=== PATIENT | female | born 1975 | race Caucasian/White ===

== ENCOUNTER 2020-06-08 12:18 | Emergency (ER) | payer SELFPAY ==
[2020-06-08 12:19] VITALS: BP 124/75; PULSE 104; RESP 16; TEMP 36.6; O2SAT 98; BMI 35.5
--- NOTE | 2020-06-08 12:30 | W.ED.NECK ---
HPI - Neck Pain/Injury General: Chief Complaint: Neck Pain/Injury Stated Complaint: NECK PAIN (X6 DAYS) NOW RADIATING TO L CHEST Time Seen by Provider: 06/08/20 12:21 Source: patient Mode of arrival: ambulatory Limitations: no limitations History of Present Illness: HPI Narrative: Patient is a 44-year-old female who presents to ED today with complaints of pain to the right side of her neck down into the posterior aspect of her shoulder. Patient states she has noticed the pain over the past 4 to 5 days. She has not had any known injury or trauma. 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 She states pain seems to be exacerbated with range of motion of her shoulder and arm. She does report some intermittent paresthesias to her hand. She is not having any midline neck tenderness. She has not noticed any color or temperature changes to her arm. MD complaint: neck pain and other (R shoulder) Onset (ago): day(s) Radiation: right lateral, right shoulder and right upper extremity Severity: moderate Duration: constant Relieving factors: none Exacerbating factors: movement of extremity Associated symptoms: Reports no associated symptoms; Denies nausea Treatments prior to arrival: acetaminophen and ibuprofen Review of Systems Const: Denies: fever(s) Eyes: Denies: change in vision or blurry vision Card: Denies: chest pain, palpitations, irregular heart rhythm, edema, lightheadedness, syncope, pre-syncope, orthopnea or acrocyanosis Resp: Denies: dyspnea GI: Denies: nausea or vomiting Musc: Reports: neck pain, joint pain (R shoulder) and limited range of motion; Denies: back pain, extremity swelling, joint swelling, joint redness, joint stiffness or muscle weakness Neuro: Reports: sensory changes (reports intermittent tingling to hand); Denies: numbness in extremities [facility] ED Female Reproductive History: Date of last menstrual period: 05/12/20 Physical Exam Const: COMMON NORMALS: no acute distress, patient oriented x3, no limitations and alert GENERAL APPEARANCE: cooperative NUTRITIONAL APPEARANCE: obese ORIENTATION/CONSCIOUSNESS: Yes awake, Yes oriented to person, Yes oriented to place and Yes oriented to time HENMT: COMMON NORMALS: normocephalic and atraumatic HEAD & SCALP: normocephalic and atraumatic Neck/C-Spine: COMMON NORMALS: full ROM, no lymphadenopathy and no meningeal signs CERVICAL SPINE: Yes cervical ROM normal, No pain with cervical ROM, No Cervical spine tenderness, Yes Paracervical muscle tenderness right, Yes Paracervical spasm right and Yes Trapezius muscle tenderness right Chest: COMMONS NORMALS: normal inspection of the chest and normal palpation of entire chest wall Resp: COMMON NORMALS: normal respiratory effort and clear to auscultation bilaterally AUSCULTATION: clear to auscultation bilaterally Cardio: COMMON NORMALS: regular rate and regular rhythm RATE: regular rate RHYTHM: regular rhythm Back/Pelvis: BACK IMAGE (FEMALE): 1. TTP overlying trapezius musculature; spasm noted 2. 3. Extremity: COMMON NORMALS: normal to inspection GENERAL: Yes normal exam except as noted OTHER: TTP posterior R shoulder; limited ROM secondary to pain; NV intact Neuro: COMMON NORMALS: patient oriented x3 SENSORIUM/ORIENTATION: Yes alert, Yes oriented to person, Yes oriented to place and Yes oriented to time MENINGEAL SIGNS: Yes no meningeal signs Course Vital Signs: Vital signs: Vital Signs Temperature 97.9 F 06/08/20 12:19 Pulse Rate 104 H 06/08/20 12:19 Respiratory Rate 16 06/08/20 12:19 Blood Pressure 124/75 06/08/20 12:19 Pulse Oximetry 98 06/08/20 12:19 MDM - Neck Pain/Injury MDM Narrative: Medical decision making narrative: Pt point tender directly over trapezius musculature. Will treat with NSAIDS, steroids, and muscle relaxers. She agrees to follow up with PCP for further evaluation if pain persists. Return to ED precautions given. Discharge Plan Discharge Patient Disposition: Home Clinical Impression: Strain of right trapezius muscle Qualifiers: Encounter type: initial encounter Qualified Code(s): S46.811A - Strain of other muscles, fascia and tendons at shoulder and upper arm level, right arm, initial encounter Condition: Stable Prescriptions: New cyclobenzaprine 10 mg tablet 10 mg PO TID Qty: 14 RF: 0 ibuprofen 800 mg tablet 800 mg PO Q8H PRN (Reason: pain) Qty: 20 RF: 0 Medrol (Marcos) 4 mg tablets,dose pack See Rx Instructions .ROUTE .COMPLEX Qty: 21 RF: 0 Discharge Orders: Discharge ED (Routine); Ordered 06/08/20 Ordered By: Brigitte Fernandez Referrals: Charles,Lizz M, DO [Primary Care Provider] - Patient Instructions: Muscle Strain (ED), Musculoskeletal Pain (ED) Coding Level of Care Code ED Brand Ambassador for Michelle Rivas
[2020-06-08] MEDS: ketorolac 60 mg/2 mL INJ IM (13:00)
[2020-06-08] MEDS: dexamethasone 10 mg/mL INJ 8 MG IM (13:18)
== END 2020-06-08 13:20 | disposition home or self-care (01) ==
PROVIDERS: Emergency Provider Physician Assistant; PCP Internal Medicine
DX: S46.811A Strain of other muscles, fascia and tendons at shoulder and upper arm level, right arm, initial encounter (principal); X58.XXXA Exposure to other specified factors, initial encounter
CPT/HCPCS: 96372; 99283; J1100; J1885

== ENCOUNTER 2020-06-17 16:06 | Emergency (ER) | payer SELFPAY ==
[2020-06-17 16:15] VITALS: BP 124/78; PULSE 95; RESP 14; TEMP 37; O2SAT 98; BMI 35.5
--- NOTE | 2020-06-17 16:33 | XRR_ITS ---
PROCEDURE INFORMATION: Exam: XR Right Humerus Exam date and time: 06/17/2020 4:34 PM Age: 45 years old Clinical indication: Pain; Upper arm; Right TECHNIQUE: Imaging protocol: XR Right humerus. Views: 2 or more views. COMPARISON: No relevant prior studies available. FINDINGS: Bones/joints: Normal. Soft tissues: Normal. XR/[place] [id number] IMPRESSION: No acute findings.
--- NOTE | 2020-06-17 16:34 | W.ED.EXTPRO ---
HPI - Extremity Problem General: Chief complaint: Extremity Problem,Nontraumatic Stated complaint: Pain in Rt arm Time Seen by Provider: 06/17/20 16:27 History of Present Illness: HPI Narrative: Patient complained about pain to her right humerus area tricep bicep area been going on for about a week. She was treated here a week ago and said the trapezius pain is improved but the bicep is continue to hurt makes it very difficult for her to sleep. 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 She would like to have an x-ray of the humerus because she said the bone hurts. Complaint: extremity pain Onset (ago): week(s) Pain Consistency: constant Location: right and upper extremity Severity scale (1-10): 5 Quality: burning and aching Relieving factors: immobilization Exacerbating factors: range of motion Associated symptoms: Reports no associated symptoms; Deny chest pain, fever(s) or rash Review of Systems Const: Denies: fever(s), chills or body aches Eyes: Denies: change in vision or blurry vision ENMT: Denies: throat pain or nasal congestion Card: Denies: chest pain or dyspnea on exertion Resp: Denies: dyspnea, productive cough or non-productive cough GI: Denies: abdominal pain, nausea or vomiting Musc: Reports: extremity pain (Right humerus) Skin/Breast: Reports: other (Small bruise right tricep distal aspect); Denies: rash Neuro: Denies: headache(s) Psych: Denies: anxiety or depression Dilip/Lymph: Denies: easy bruising [facility] ED Female Reproductive History: Date of last menstrual period: 05/12/20 Physical Exam Const: COMMON NORMALS: no acute distress, average body habitus and patient oriented x3 HENMT: COMMON NORMALS: normocephalic HEAD & SCALP: normal to inspection and normocephalic FACE & SINUS: normal facial exam Eye: COMMON NORMALS: conjunctivae normal GENERAL EYE: appearance normal, both eyes and all related structures CONJUNCTIVA: Yes conjunctivae normal Neck/C-Spine: COMMON NORMALS: no JVD Chest: COMMONS NORMALS: normal inspection of the chest Resp: COMMON NORMALS: normal respiratory effort and clear to auscultation bilaterally AUSCULTATION: clear to auscultation bilaterally Cardio: COMMON NORMALS: no JVD, regular rate and regular rhythm RATE: regular rate RHYTHM: regular rhythm GI: COMMON NORMALS: Normal to inspection, nondistended, normoactive bowel sounds present Back/Pelvis: OTHER: Trapezius area it is slightly tender she said feels better now than previously and this is on the right side Extremity: COMMON NORMALS: normal to inspection and full ROM RIGHT UPPER EXTREMITY: Yes upper arm (Pain palpation right humeral resistive arm movements are tender) Right upper arm: Yes neurovascular exam (Intact) OTHER: Patient complains about pain in tricep and bicep area with different range of motion muscular test. Hurts with resistance either going superiorly or inferiorly. Tender to palpation on the tricep area no swelling noted distal neurovascular intact no obvious muscle tear no erythema or evidence of clot Neuro: COMMON NORMALS: patient oriented x3 Course Vital Signs: Vital signs: Vital Signs Temperature 98.6 F 06/17/20 16:15 Pulse Rate 95 06/17/20 16:15 Respiratory Rate 14 06/17/20 16:15 Blood Pressure 124/78 06/17/20 16:15 Pulse Oximetry 98 06/17/20 16:15 Discharge Plan Discharge Condition: Good Prescriptions: No Action cyclobenzaprine 10 mg tablet 10 mg PO TID Qty: 14 RF: 0 ibuprofen 800 mg tablet 800 mg PO Q8H PRN (Reason: pain) Qty: 20 RF: 0 Medrol (Marcos) 4 mg tablets,dose pack See Rx Instructions .ROUTE .COMPLEX Qty: 21 RF: 0 Coding Level of Care Code ED Technical Research Scientist for Michelle Rivas
== END 2020-06-17 17:27 | disposition home or self-care (01) ==
PROVIDERS: Emergency Provider Nurse Practitioner Family; PCP Internal Medicine
DX: M79.601 Pain in right arm (principal)
CPT/HCPCS: 73060; 99282

== ENCOUNTER 2020-08-07 16:40 | Outpatient (CLI) | payer SELFPAY ==
--- NOTE | 2020-08-07 16:50 | XRR_ITS ---
PROCEDURE INFORMATION: Exam: XR Right Shoulder Exam date and time: 08/07/2020 4:50 PM Age: 45 years old Clinical indication: Pain; Shoulder; Right; Additional info: RT shoulder pain x 8 weeks TECHNIQUE: Imaging protocol: XR Right shoulder. Views: 2 or more views. COMPARISON: No relevant prior studies available. FINDINGS: Bones/joints: Normal. Soft tissues: Normal. XR/XR shoulder RT min 2V* [id number] IMPRESSION: No acute findings.
== END 2020-08-07 16:41 | disposition home or self-care (01) ==
PROVIDERS: PCP Internal Medicine; Visit Provider Internal Medicine
DX: M25.511 Pain in right shoulder (principal)
CPT/HCPCS: 73030

== ENCOUNTER → 2022-11-13 10:37 | Outpatient (BNVA) | payer BC, SELFPAY | PROVIDERS: PCP Internal Medicine; Visit Provider Family Medicine Adult Medicine | DX: M06.9 Rheumatoid arthritis, unspecified (principal); M25.561 Pain in right knee; M25.461 Effusion, right knee; Q76.1 Klippel-Feil syndrome; F32.A Depression, unspecified | CPT/HCPCS: 80053; 84443; 85025; 85651; 86140; 86160; 86162; 86200; 86235; 86255; 86376; 86431 ==

== ENCOUNTER → 2022-12-19 09:58 | Outpatient (BNVA) | payer BC, SELFPAY | PROVIDERS: PCP Internal Medicine; Referring Provider Family Medicine Adult Medicine; Visit Provider Physician Assistant | DX: M25.561 Pain in right knee (principal); M25.562 Pain in left knee; M25.461 Effusion, right knee | CPT/HCPCS: 73560 ==

== ENCOUNTER 2022-12-19 13:45 | Outpatient (CLI) | payer BC, MEDICAID, SELFPAY | END 2022-12-19 13:46 | disposition home or self-care (01) | LOC: SPT 13:45 | PROVIDERS: PCP Internal Medicine; Visit Provider Physician Assistant | DX: Z46.89 Encounter for fitting and adjustment of other specified devices (principal); M25.561 Pain in right knee; M25.461 Effusion, right knee | CPT/HCPCS: 97760; L1812 ==

== ENCOUNTER → 2023-01-09 14:17 | Outpatient (BNVA) | payer BC, MEDICAID, SELFPAY | PROVIDERS: PCP Internal Medicine; Visit Provider Orthopaedic Surgery | DX: Z98.1 Arthrodesis status (principal); M54.2 Cervicalgia | CPT/HCPCS: 72050 ==

== ENCOUNTER 2023-02-11 15:05 | Outpatient (CLI) | payer BC, SELFPAY ==
--- NOTE | 2023-02-11 15:15 | MR_ITS ---
WS: [id number] MRI CERVICAL SPINE NONCONTRAST HISTORY: Chronic neck and low back pain. COMPARISON: Cervical radiograph 01/09/2023 Technique: Multiplanar, multisequence noncontrast imaging of the cervical spine. Prior anterior cervical fusion at C6-7 with interbody spacer. No complications are evident. Straighte yue of the normal cervical lordosis. Disc spaces are mildly narrowed throughout the cervical spine with osteophytic ridging involving the vertebral bodies. Craniocervical junction, C1 and C2 relationship, odontoid process and soft tissues are normal. C2-C3: Diffuse osteophytic ridging with mild bilateral foraminal narrowing. C3-C4: Very mild osteophytic ridging and foraminal narrowing. C4-C5: Mild annular disc bulging with bilateral disc osteophytes in the foramina. Mild central and bi lateral foraminal narrowing. C5-C6: Diffuse annular disc bulging with osteophytic ridging. Shallow proximal LEFT foraminal disc pr otrusion. Mild central with moderate bilateral foraminal stenosis. C6-C7: Limited visualization of the foramina due to artifact. No high-grade central stenosis. At leas t mild foraminal stenosis. C7-T1: Mild foraminal narrowing. Paraspinal soft tissue are normal. IMPRESSION: 1. Status post anterior cervical fusion with interbody spacer at C6-7, no complications. 2. Diffuse osteophytic ridging involving the cervical vertebral bodies with mild foraminal and centra l stenosis encroachment. 3. C2-3, C3-4 and C7-T1, mild foraminal narrowing. 4. C4-5: Mild central and bilateral foraminal narrowing. 5. C5-6: Mild central and moderate bilateral foraminal stenosis. There is a more focal LEFT foraminal disc protrusion. 6. C6-7: Limited evaluation due to artifact from the hardware but there is at least mild foraminal st enosis.
--- NOTE | 2023-02-11 16:00 | MR_ITS ---
WS: [id number] MRI LUMBAR SPINE NONCONTRAST HISTORY: lumbar pain COMPARISON: CT 12/12/2016 TECHNIQUE: Sagittal and axial multisequence imaging is submitted. Posterior lumbar alignment is normal. Remote L1 compression fracture without progression since the CT of 12/12/2016. No acute fracture. No marrow edema. Disc spaces are mildly narrowed throughout the lumbar spine. Conus terminates normally at L1-2 disc level. L1-L2: Normal. L2-L3: Mild annular disc bulging with moderate ligamentum flavum and facet arthritis. Disc encroaches upon the subarticular recesses and the traversing L3 nerve roots. L3-L4: Mild annular disc bulging with a moderate to large central disc protrusion deforms the ventral thecal sac and extending into the subarticular recesses. Moderate bilateral ligamentum flavum and fa cet arthritis. Moderate encroachment upon the traversing L4 nerve roots. Moderate central, bilateral subarticular recess and mild foraminal stenosis. L4-L5: Diffuse annular disc bulging with a broad-based central disc protrusion and annular fissure. D isc encroaches into the subarticular recesses and deforms the ventral thecal sac. Disc contacts and s lightly displaces the traversing L5 nerve roots. Mild central, bilateral subarticular recess and fora tanja stenosis. L5-S1: Mild annular disc bulging. The disc does contact the S1 nerve roots bilaterally with slight di splacement. Mild subarticular recess with moderate bilateral foraminal stenosis. Paravertebral soft tissues are negative. IMPRESSION: 1. Stable remote L1 compression fracture without retropulsion. 2. L3-4: Moderate to large central disc protrusion encroaching into the subarticular recesses and con tacting the traversing L4 nerve roots moderate central, bilateral subarticular recess and mild forami nal stenosis. 3. L4-5: Broad-based central disc protrusion encroaching into the subarticular recess. Mild central, bilateral subarticular recess and foraminal stenosis. 4. L5-S1: Disc bulging contacts the S1 nerve roots. Mild subarticular recess with moderate bilateral foraminal stenosis. 5. L2-3: Minimal disc encroachment upon the subarticular recesses and traversing L3 nerve roots.
== END 2023-02-11 15:06 | disposition home or self-care (01) ==
LOC: RAD 15:06
PROVIDERS: PCP Internal Medicine; Visit Provider Orthopaedic Surgery
DX: Q76.1 Klippel-Feil syndrome (principal); M54.50 Low back pain, unspecified; M51.26 Other intervertebral disc displacement, lumbar region; M48.061 Spinal stenosis, lumbar region without neurogenic claudication; Z98.1 Arthrodesis status; M25.78 Osteophyte, vertebrae; M48.02 Spinal stenosis, cervical region; M50.222 Other cervical disc displacement at C5-C6 level
CPT/HCPCS: 72141; 72148

== ENCOUNTER → 2023-06-05 09:15 | Outpatient (BNVA) | payer BC, MEDICAID, SELFPAY | PROVIDERS: PCP Family Medicine Adult Medicine; Visit Provider Physician Assistant | DX: M25.561 Pain in right knee (principal); M25.461 Effusion, right knee; M25.571 Pain in right ankle and joints of right foot; M06.9 Rheumatoid arthritis, unspecified; M25.469 Effusion, unspecified knee; M06.4 Inflammatory polyarthropathy | CPT/HCPCS: 36415; 73560; 73565; 73610; 80053; 84550; 85025; 85651; 86140; 86200; 86225; 86235; 86431 ==

== ENCOUNTER 2023-07-12 06:41 | Emergency (ER) | payer BC, MEDICAID, SELFPAY ==
--- NOTE | 2023-07-12 06:42 | W.ED.ANIMALB ---
HPI - Animal Bite General: Chief Complaint: Animal Bite Stated Complaint: DOG BITE Time Seen by Provider: 07/12/23 06:42 Source: patient Mode of arrival: EMS History of Present Illness: 48-year-old female presents emergency room after being bitten by one of her pets at home she has several puncture wounds to her right hand and a gaping wound of approximately 5 cm overlying the distal radius. There is a small amount of oozing from it. Patient is unsure of her tetanus status she states the dog has had rabies vaccinations and is up-to-date. No other injuries MD complaint: animal bite Animal: dog Description of animal: household pet Mechanism: bite Location - Extremities: Left: hand Associated symptoms: Deny bleeding, numbness or wound drainage Treatments prior to arrival: wound dressing(s) Related Data: Patient tetanus UTD: No [facility] ED PFSH: Medical History (Updated 07/12/23 @ 07:05 by Tapan Akhtar DO) COPD (chronic obstructive pulmonary disease) Cervical vertebral fusion syndrome Anxiety Depression Rheumatoid arthritis Compression fracture Ectopic Nicotine use disorder Psychiatric care Surgical History History of cholecystectomy H/O spinal fusion Family History Father No problems noted. Mother Paranoia Hallucination Diabetes Cancer Stroke Social History Smoking and tobacco/nicotine status: current every day tobacco/nicotine user cigarettes Packs smoked per day: 0.5 Years cigarettes smoked: 24 Quit status (tobacco/nicotine): has tried quititng Number of times tried to quit tobacco: 2 Second hand smoke exposure: Yes Alcohol intake: former Substance/Drug Use: current Other substance/drug use details: CDB products. Physical Exam Extremity: OTHER: Examination of the right hand there are several puncture wounds on the hand 1 at the center of the base of the palm there is no active gaping. There is a gaping wound of approximately 5 cm overlying the distal radius laterally. Subcutaneous tissue is exposed. Small amount of bleeding. Procedures Laceration Laceration 1: Site: upper extremity Side (If applicable): right Size (cm): 5 Description: linear Depth: simple, single layer Local Anesthetic: lidocaine 1% and with epi Amount of anesthesia used (mL): 3 Pre-repair: wound explored Skin layer closed with: nylon Size (cm): 4-0 Number of sutures: 3 Technique: simple, interrupted Course Vital Signs: Vital signs: Vital Signs Temperature 98.4 F 07/12/23 06:44 Pulse Rate 99 07/12/23 06:52 Respiratory Rate 18 07/12/23 06:44 Blood Pressure 137/74 07/12/23 06:52 Pulse Oximetry 96 07/12/23 06:52 Oxygen Delivery Me thod Room Air 07/12/23 06:44 MDM - Animal Bite Medical Decision Making Because the wound was gaping fairly significantly sutures were applied. 3 loose sutures applied to close the gaping but did not completely close the wound. Still allows for drainage. Discussed with the patient that normally we do not close animal bites however because this was gaping it is loosely approximated. She should watch closely for signs of infection if there is any drainage or induration or erythema she should return to the emergency room to be reevaluated or see your primary care doctor. Sutures should be removed in 7 to 10 days wound care instructions given can also apply topical antibiotic ointment. X-ray does not show any retained foreign bodies or acute fractures there is an old nonunited ulnar styloid fracture. Differential Diagnosis Likely dog bite XR interpretation done by ED provider, pending radiology final review Discharge Plan Discharge Patient Disposition: Home Clinical Impression: Dog bite Prescriptions: New amoxicillin-pot clavulanate 875-125 mg tablet 1 tab PO BID Qty: 14 0RF No Action albuterol sulfate 90 mcg/actuation HFA aerosol inhaler 2 puff inhalation Q6H PRN (Reason: shortness of breath or wheezing) Qty: 8.5 0RF (DME) knee brace right See Rx Instructions .Route .MEDSUPPLY Qty: 1 0RF Rx Instructions: As directed acetaminophen [Tylenol] 325 mg capsule 975 mg PO DAILY PRN (Reason: fever or pain) duloxetine [Cymbalta] 60 mg capsule,delayed release(DR/EC) 120 mg PO DAILY Qty: 60 1RF cyproheptadine 4 mg tablet 4 mg PO .HS Qty: 30 1RF (DME) RIGHT ANKLE BRACE See Rx Instructions .Route .MEDSUPPLY Qty: 1 0RF Rx Instructions: As directed baclofen 10 mg tablet 10 mg PO BID PRN (Reason: spasm) Qty: 60 0RF ibuprofen 800 mg tablet 800 mg PO Q8H PRN (Reason: pain) Qty: 90 1RF hydroxyzine HCl 10 mg tablet 10 mg PO TID PRN (Reason: sleep) Qty: 90 1RF Discharge Orders: Discharge ED (Routine); Ordered 07/12/23 Ordered By: Tapan Akhtar Referrals: Charles Conrad MD [Primary Care Provider] - Discharge Diet: Usual diet Discharge Activity: Increase activity as tolerated Patient Instructions: Opioid Safety, Pain Management Activity Restrictions/Additional Instructions: Thank you for choosing [facility] for your healthcare needs today. Please realize this is an emergency room and that we are providing you with a medical screening exam and this may not be complete and all inclusive of all the testing and or work up that you may need to determine your ailment or severity of your illness. It is very important that you follow up as instructed or that you return to the Emergency Department should you have concerns or if your condition changes or worsens in any way. You were seen today after a dog bite. Animal bites have a increased potential for developing infection. Especially the puncture wounds. The wound over the wrist was sutured loosely to allow for drainage should any infection develop. Watch this wound closely if there is any redness or drainage return to be reevaluated. You will be started on oral antibiotics 1 pill twice a day begin these today. X-rays done in the emergency room shoulder and old ulnar styloid fracture but no acute fractures or retained foreign bodies. Your tetanus was also updated today. Use Tylenol or ibuprofen for the pain. You can ice if needed for comfort. Recommend keeping the right hand elevated when you are able. We did not initiate rabies since she reported to us that the dog has had the rabies vaccine. Coding Level of Care Code ED Pipe Layer Helper for Michelle Rivas
[2023-07-12 06:44] VITALS: BP 137/74; PULSE 97; RESP 18; TEMP 36.9; O2SAT 95
--- NOTE | 2023-07-12 06:48 | XRR_ITS ---
PROCEDURE INFORMATION: Exam: XR Right Hand Exam date and time: 07/12/2023 6:51 AM Age: 48 years old Clinical indication: Injury or trauma; Other: Dog bite; Puncture; Hand; Right TECHNIQUE: Imaging protocol: Radiologic exam of the right hand. Views: 3 or more views. COMPARISON: No relevant prior studies available. FINDINGS: Bones/joints: Normal. No osseous injury. No radiopaque foreign material. Soft tissues: Normal. XR/XR hand RT min 3V* [id number] IMPRESSION: No acute findings.
[2023-07-12 06:52] VITALS: BP 137/74; PULSE 99; O2SAT 96
[2023-07-12] MEDS: acetaminophen 500 mg Tablet 1000 MG PO (07:13)
[2023-07-12] MEDS: tetanus-dipt-pertussis 0.5 mL SDV IM (07:19)
[2023-07-12 07:27] VITALS: BP 137/74; PULSE 99; O2SAT 96
== END 2023-07-12 07:28 | disposition home or self-care (01) ==
PROVIDERS: Emergency Provider Family Medicine; PCP Family Medicine Adult Medicine
DX: S61.451A Open bite of right hand, initial encounter (principal); W54.0XXA Bitten by dog, initial encounter; F17.210 Nicotine dependence, cigarettes, uncomplicated; J44.9 Chronic obstructive pulmonary disease, unspecified; Z23 Encounter for immunization
CPT/HCPCS: 12002; 73130; 90715; 99283

== ENCOUNTER 2023-07-30 16:14 | Outpatient (CLI) | payer BC, MEDICAID, SELFPAY ==
--- NOTE | 2023-07-30 16:18 | MR_ITS ---
WS: [id number] MRI RIGHT KNEE NONCONTRAST TECHNIQUE: Axial PD, coronal PD fat sat, coronal PD, sagittal PD, and sagittal PD fat-sat images obta ined. CLINICAL INFORMATION: KNEE PAIN COMPARISON: None. FINDINGS: Distal quadriceps and patella tendons are intact. Hypertrophic patella. Moderate suprapatellar effusi on. Moderate chondromalacia patella. Normal medial and lateral patellar retinaculum. Normal ACL and P CL. Normal medial and lateral collateral ligaments. Normal popliteus. Moderate tricompartment arthrit is with grade III chondromalacia. Chronic thinning of the medial and lateral meniscus. No acute appea ring meniscal tears. Fibula head is normal in appearance. MR/MR knee RT wo con* [id number] IMPRESSION: 1. Normal ACL and PCL. 2. 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 Moderate c hondromalacia patella. 3. Moderate suprapatellar effusion. 4. Chronic thinning of the medial and lateral meniscus. No acute meniscal tear s. 5. Medial and lateral collateral ligaments appear intact. Outbridge grading: grade III: partial-thickness cartilage loss with focal ulcer ation
== END 2023-07-30 16:15 | disposition home or self-care (01) ==
LOC: RAD 16:14
PROVIDERS: PCP Family Medicine Adult Medicine; Visit Provider Physician Assistant
DX: M25.561 Pain in right knee (principal); M25.461 Effusion, right knee; M17.11 Unilateral primary osteoarthritis, right knee
CPT/HCPCS: 73721

== ENCOUNTER → 2023-08-12 10:30 | Outpatient (BNVA) | payer BC, MEDICAID, SELFPAY | PROVIDERS: PCP Family Medicine Adult Medicine; Visit Provider Physician Assistant | DX: M17.11 Unilateral primary osteoarthritis, right knee; M25.461 Effusion, right knee; S93.401A Sprain of unspecified ligament of right ankle, initial encounter; X58.XXXA Exposure to other specified factors, initial encounter | CPT/HCPCS: 73610 ==

== ENCOUNTER → 2023-11-25 08:02 | Outpatient (BNVA) | payer MEDICAID, SELFPAY | PROVIDERS: PCP Family Medicine Adult Medicine; Visit Provider Specialist | DX: Z53.09 Procedure and treatment not carried out because of other contraindication (principal) | CPT/HCPCS: 95885; 95907 ==

== ENCOUNTER → 2023-12-04 14:39 | Outpatient (BNVA) | payer MEDICAID, SELFPAY | PROVIDERS: PCP Family Medicine Adult Medicine; Visit Provider Orthopaedic Surgery | DX: Z09 Encounter for follow-up examination after completed treatment for conditions other than malignant neoplasm (principal) | CPT/HCPCS: 99214 ==

== ENCOUNTER 2023-12-17 13:25 | Outpatient (CLI) | payer MEDICAID, SELFPAY ==
--- NOTE | 2023-12-17 13:45 | MRR_ITS ---
PROCEDURE INFORMATION: Exam: MR Right Lower Extremity Joint Without Contrast; Ankle Exam date and time: 12/17/2023 2:44 PM Age: 48 years old Clinical indication: Ankle; Right; Patient HX: Pain and swelling of the lateral side around the malleus; Additional info: Evaluated atfl and PT tendon TECHNIQUE: Imaging protocol: Magnetic resonance imaging of the right lower extremity without contrast. Exam focused on the ankle. COMPARISON: CR XR ankle RT min 3V* [id number] 08/12/2023 11:01 AM FINDINGS: Bones/joints: Small ankle effusion. The bones are intact and of normal signal. No fracture. LIGAMENTS: Distal tibiofibular syndesmosis: Unremarkable. No tear. Anterior talofibular ligament: Unremarkable. No tear. Posterior talofibular ligament: Unremarkable. No tear. Calcaneofibular ligament: Unremarkable. No tear. Deltoid ligament complex: Unremarkable. No tear. TENDONS: Flexor tendons of foot: Small amount of fluid in the flexor digitorum longus tendon sheath. The tendon appears intact. Tibialis posterior tendon: Small amount of fluid in the posterior tibialis tendon sheath. The tendon appears intact. Peroneal tendons: Unremarkable as visualized. Extensor tendons of foot: Unremarkable as visualized. Tibialis anterior tendon: Small amount of fluid in the distal sheath. The tendon appears intact. Achilles tendon: Mild soft tissue edema deep to the Achilles tendon. The Achilles tendon appears intact. Tarsal canal (Sinus tarsi): Unremarkable. Normal signal of the fat. Tarsal tunnel: Unremarkable. Soft tissues: Mild edema in the peroneus longus musculotendinous junction with a small amount of fluid in the tendon sheath. The tendon appears intact. Mild edema in the peroneus brevis musculotendinous junction with a small amount of fluid in the tendon sheath. The tendon appears intact. Plantar fascia: Plantar fascia is unremarkable. MR/MR ankle RT wo con* [id number] IMPRESSION: 1. Small amount of fluid in the tibialis posterior,, tibialis anterior, flexor digitorum longus, peroneus longus, and peroneus brevis tendon sheaths. This could indicate mild tenosynovitis. The tendons appear intact with no tendinopathy visualized. 2. Small ankle effusion.
== END 2023-12-17 13:26 | disposition home or self-care (01) ==
LOC: RAD 13:25
PROVIDERS: PCP Family Medicine Adult Medicine; Visit Provider Podiatrist Foot & Ankle Surgery
DX: M25.471 Effusion, right ankle (principal); M25.371 Other instability, right ankle; S99.911A Unspecified injury of right ankle, initial encounter; M25.571 Pain in right ankle and joints of right foot; S93.491A Sprain of other ligament of right ankle, initial encounter
CPT/HCPCS: 73721

== ENCOUNTER 2024-03-10 10:19 | Outpatient (RCR) | payer MEDICAID, SELFPAY | END 2024-03-30 23:59 | disposition home or self-care (01) | LOC: SPT 10:19 | PROVIDERS: Visit Provider Orthopaedic Surgery | DX: M54.2 Cervicalgia (principal); G89.29 Other chronic pain | CPT/HCPCS: 97110 ==

== ENCOUNTER 2024-03-31 06:00 | Outpatient (RCR) | payer MEDICAID, SELFPAY | END 2024-04-30 23:59 | disposition home or self-care (01) | LOC: SPT 06:00 | PROVIDERS: Visit Provider Orthopaedic Surgery | DX: M54.2 Cervicalgia (principal); G89.29 Other chronic pain | CPT/HCPCS: 97110 ==

== ENCOUNTER 2024-05-01 06:00 | Outpatient (RCR) | payer MEDICAID, SELFPAY | END 2024-05-28 23:59 | disposition home or self-care (01) | LOC: SPT 06:00 | PROVIDERS: Visit Provider Orthopaedic Surgery | DX: M54.2 Cervicalgia (principal); G89.29 Other chronic pain | CPT/HCPCS: 97110 ==

== ENCOUNTER 2024-05-29 06:00 | Outpatient (RCR) | payer MEDICAID, SELFPAY | END 2024-06-28 23:59 | disposition home or self-care (01) | LOC: SPT 06:00 | PROVIDERS: Visit Provider Orthopaedic Surgery | DX: M54.2 Cervicalgia (principal); G89.29 Other chronic pain | CPT/HCPCS: 97110; 97150 ==

== ENCOUNTER 2024-08-19 00:23 | Emergency (ER) | payer MEDICAID, SELFPAY ==
[2024-08-19 00:26] VITALS: BP 131/79; PULSE 101; RESP 18; TEMP 36.7; O2SAT 95; BMI 35.9
[2024-08-19 02:19] LABS: Basophils # 0.1 10^3/uL (0.0-0.1); Basophils % 0.7 %; Eosinophils # 0.5 10^3/uL (0.0-0.8); Eosinophils % 5.1 %; Lymphocytes # 2.5 10^3/uL (0.8-4.8); Lymphocytes % 28.7 %; Mean Corpuscular HGB Conc 33.5 g/dL (30-55); Mean Corpuscular Hemoglobin 31.1 pg (27-33); Mean Corpuscular Volume 92.8 fl (85-98); Monocytes # 0.6 10^3/uL (0.2-0.9); Monocytes % 6.4 %; Neutrophils # 5.19 10^3/uL (1.8-7.7); Neutrophils % 58.9 %; Nucleated Red Blood Cells % 0 %; Platelet Count 223 10^3/cmm (157-399); Red Blood Count 5.28 10^6/uL (3.85-5.65); Red Cell Distribution Width 13.2 % (12.1-15.1); White Blood Count 8.81 10^3/uL (3.29-11.43)
[2024-08-19 02:22] LABS: Bilirubin Urine Negative (Negative); Blood Urine Negative (Negative); Glucose Urine UA Negative (Normal); Ketones Urine Negative (Negative); Leukocyte Esterase Urine Negative (Negative); Nitrate Urine Negative (Negative); Protein Urine Negative (Negative); Specific Gravity, Urine 1.022 (1.005-1.030); Urine Appearance Clear (CLEAR); Urine Color Yellow (Yellow)
[2024-08-19 02:27] LABS: Add Urine Microscopic? YES; Bacteria Urine None Seen /hpf; RBC Urine 0-2 /hpf (0-2); Squamous Epithelial Cell Urine 0-5 /hpf (0-5); WBC Urine 0-5 /hpf (0-5)
[2024-08-19 02:34] LABS: Alanine Aminotransferase 16 U/L (0-33); Alkaline Phosphatase 80 U/L (35-105); Aspartate Amino Transferase 14 U/L (0-32); Blood Urea Nitrogen 14 mg/dL (6-20); Carbon Dioxide 29 mmol/L (22-29); Chloride 99 mmol/L (98-107); Creatinine Clr Calc Pharmacy 134.6549; Globulin 3.5 g/dL (1.3-4.6); Glomerular Filtration Rate 105.8 mL/min (90-130); Glucose 96 mg/dL (65-115); Lipase 18 U/L (13-60); Magnesium 1.9 mg/dL (1.7-2.3); Osmolality Calculated 286 mOsm/kg (285-295); Sodium 138 mmol/L (136-145); Total Bilirubin 0.3 mg/dL (0.15-1.2); Total Protein 7.5 g/dL (6.6-8.7)
[2024-08-19 02:35] LABS: Lactic Sepsis W/Reflex 1.2 mmol/L (0.5-2.2)
[2024-08-19] MEDS: sodium chloride 0.9% 1,000 ML 999 ML IV (02:39)
--- NOTE | 2024-08-19 04:21 | ED_ITS ---
HPI - Abdominal Pain 2 General: Chief Complaint: Abdominal Pain Stated Complaint: epigastric abd pain/ n/v/d Time Seen by Provider: 08/19/24 02:14 History of Present Illness: Ceci Ruiz presents to the emergency department with abdominal pain and vomiting. The patient reports experiencing pain in her gut, particularly after eating. She states that she did not eat for 2 days and did not have pain during that time. However, when she ate again on Friday (the day before the visit), she experienced pain and vomiting. The patient describes the pain as located right up in the middle of her abdomen. She mentions that drinking water and chicken broth is tolerable, but attempting to drink Propel (an electrolyte beverage) exacerbated her symptoms. The patient has not experienced any constipation or diarrhea. She denies having fever or chills. The patient expresses concern about her pancreas, but states she does not have her gallbladder. She reports no blood in her vomit or stool. The patient mentions that she tried eating bland fish (Swahili or [place] T[place]) in small amounts, but was unable to keep it down, describing the experience as ridiculous. Related Data Home Medications ?Medication ?Instructions ?Recorded ?Confirmed acetaminophen 325 mg capsule 975 mg PO DAILY PRN fever or pain 11/07/21 07/29/24 (Tylenol) B-complex with vitamin C 1 tab PO DAILY 04/29/2404/24 ashwagandha root extract 300 mg mg PO 04/29/24 5 capsule berberine chloride 500 mg capsule mg PO 04/29/2407/29 calcium 300 mg-D3 25 mcg-magnesium tab PO 04/29/2404/24 66 mg-K2 37.5 mcg-herbal tablet (Alive Calcium-Vitamin D3-K2) Previous Rx's ?Medication ?Instructions ?Recorded albuterol sulfate 90 mcg/actuation 2 puff inhalation Q 6H PRN 12/03/22 aerosol inhaler shortness of breath or wheez ing #8.5 grams knee brace right #1 ea 12/19/22 RIGHT ANKLE BRACE #1 ea 06/05/23 ibuprofen 800 mg tablet 800 mg PO Q8H PRN pain #90 t abs 06/06/23 diclofenac sodium 1 % topical gel 4 g topical QID #100 grams 08/12/23 (Voltaren Arthritis Pain) triamcinolone acetonide 0.1 % 1 applic topical BID #30 grams 10/08/23 topical cream prednisone 20 mg tablet 20 mg PO DAILY 7 days #15 ta bs 04/29/24 omeprazole 40 mg capsule,delayed 40 mg PO DAILY 8 week s #60 caps 08/19/24 release Allergies Allergy/AdvReac Type Severity Reaction Status Date / Time No Known Allergies Allergy Verified 08/19/24 00:32 Review of Systems 2 General: Reports: 10 or more systems reviewed and unremarkable except in HPI and below PFSH ED 2 PFSH: Medical History COPD (chronic obstructive pulmonary disease) Cervical vertebral fusion syndrome Anxiety Depression Rheumatoid arthritis Compression fracture Ectopic Nicotine use disorder Surgical History History of cholecystectomy H/O spinal fusion Family History Father No problems noted. Mother Paranoia Hallucination Diabetes Cancer Stroke Social History Smoking and tobacco/nicotine status: current every day tobacco/nicotine user cigarettes Packs smoked per day: 0.5 Years cigarettes smoked: 24 Quit status (tobacco/nicotine): has tried quititng Number of times tried to quit tobacco: 2 Second hand smoke exposure: Yes Alcohol intake: former Substance/Drug Use: current Other substance/drug use details: CDB products. Physical Exam 2 Const: COMMON NORMALS: no acute distress, patient oriented x3, healthy appearing, alert and well nourished HENMT: COMMON NORMALS: normocephalic HEAD & SCALP: normocephalic Eye: COMMON NORMALS: EOMs intact bilaterally Neck/C-Spine: COMMON NORMALS: full ROM and supple Resp: COMMON NORMALS: normal respiratory effort, No retractions and clear to auscultation bilaterally AUSCULTATION: clear to auscultation bilaterally Cardio: COMMON NORMALS: regular rate, regular rhythm, No gallops present (Cardio) and No murmurs present (Cardio) RATE: regular rate RHYTHM: r egular rhythm GI: COMMON NORMALS: Soft to palpation and non-tender PALPATION: Yes Soft to palpation Extremity: GENERAL: Yes normal exam except as noted Neuro: COMMON NORMALS: patient oriented x3 SENSORIUM/ORIENTATION: Yes alert Skin: COMMON NORMALS: no rashes or lesions noted GENERAL SKIN EXAM: no rashes or lesions noted Course 2 Vital Signs: Vital signs: Vital Signs Temperature 98.1 F 08/19/24 00:26 Pulse Rate 83 08/19/24 04:56 Respiratory Rate 18 08/19/24 00:26 Blood Pressure 125/86 08/19/24 04:56 Pulse Oximetry 97 08/19/24 04:56 MDM - Abdominal Pain Medical Decision Making Patient reports abdominal pain, nausea, and vomiting for several days. Pain is localized to the epigastric region. She has been unable to tolerate food for 2 days, with recurrence of symptoms upon reintroduction of food. No fever, chills, diarrhea, or constipation reported. Patient's gallbladder has been removed. Labs, including pancreatic enzymes, were reported as normal. Given the location of pain and exacerbation with food intake, acid reflux is suspected. Additionally, there is consideration of a possible viral gastroenteritis, as there is a reported outbreak in the local area with similar presentations lasting up to 7 days. - Start omeprazole 40 mg PO daily, 30 minutes before first meal of the day - Administer first dose of omeprazole before discharge - Educate patient on dietary modifications: - Avoid sugary, acidic, and spicy foods - Maintain hydration with water and chicken broth Encouraged the patient to go to primary care physician for follow-up. Return precautions were discussed and the patient was discharged home in stable condition. Lab Data 08/19/24 02:01 08/19/24 02:01 Labs/Radiology: Laboratory Results WBC 8.81 10^3/uL (3.29-11.43) 08/19/24 02:01 RBC 5.28 10^6/uL (3.85-5.65) 08/19/24 02:01 Hgb 16.40 g/dL (11.27-16.99) 08/19/24 02:01 Hct 49.0 % (36-47) H 08/19/24 02:01 MCV 92.8 fl (85-98) 08/19/24 02:01 MCH 31.1 pg (27-33) 08/19/24 02:01 MCHC 33.5 g/dL (30-55) 08/19/24 02:01 RDW 13.2 % (12.1-15.1) 08/19/24 02:01 Plt Count 223 10^3/cmm (157-399) 08/19/24 02:01 MPV 12.0 fL (7.4-10.4) H 08/19/24 02:01 Neut % (Auto) 58.9 % 08/19/24 02:01 Lymph % (Auto) 28.7 % 08/19/24 02:01 [place] % (Auto) 6.4 % 08/19/24 02:01 Eos % (Auto) 5.1 % 08/19/24 02:01 Baso % (Auto) 0.7 % 08/19/24 02:01 Neut # (Auto) 5.19 10^3/uL (1.8-7.7) 08/19/24 02:01 Lymph # (Auto) 2.5 10^3/uL (0.8-4.8) 08/19/24 02:01 [place] # (Auto) 0.6 10^3/uL (0.2-0.9) 08/19/24 02:01 Eos # (Auto) 0.5 10^3/uL (0.0-0.8) 08/19/24 02:01 Baso # (Auto) 0.1 10^3/uL (0.0-0.1) 08/19/24 02:01 Nucleated RBC % (auto) 0 % 08/19/24 02:01 Nucleated RBCs # 0.0 /100WBC 08/19/24 02:01 Sodium 138 mmol/L (136-145) 08/19/24 02:01 Potassium 4.0 mmol/L (3.5-5.1) 08/19/24 02:01 Chloride 99 mmol/L (98-107) 08/19/24 02:01 Carbon Dioxide 29 mmol/L (22-29) 08/19/24 02:01 Anion Gap 14.0 (5-19) 08/19/24 02:01 BUN 14 mg/dL (6-20) 08/19/24 02:01 Creatinine 0.6 mg/dL (0.5-0.9) 08/19/24 02:01 GFR Calculation 105.8 mL/min (90-130) 08/19/24 02:01 Glucose 96 mg/dL (65-115) 08/19/24 02:01 Calculated Osmolality 286 mOsm/kg (285-295) 08/19/24 02:01 Lactic Acid 1.2 mmol/L (0.5-2.2) 08/19/24 02:01 Calcium 9.0 mg/dL (8.5-10.5) 08/19/24 02:01 Magnesium 1.9 mg/dL (1.7-2.3) 08/19/24 02:01 Total Bilirubin 0.3 mg/dL (0.15-1.2) 08/19/24 02:01 AST 14 U/L (0-32) 08/19/24 02:01 ALT 16 U/L (0-33) 08/19/24 02:01 Alkaline Phosphatase 80 U/L (35-105) 08/19/24 02:01 Total Protein 7.5 g/dL (6.6-8.7) 08/19/24 02:01 Albumin 4.0 g/dL (3.5-5.2) 08/19/24 02:01 Globulin 3.5 g/dL (1.3-4.6) 08/19/24 02:01 Lipase 18 U/L (13-60) 08/19/24 02:01 Urine Color Yellow (Yellow) 08/19/24 02:00 Urine Appearance Clear (CLEAR) 08/19/24 02:00 Urine pH 7.0 (5-7) 08/19/24 02:00 Ur Specific [place] 1.022 (1.005-1.030) 08/19/24 02:00 Urine Protein Negative (Negative) 08/19/24 02:00 Urine Glucose (UA) Negative (Normal) 08/19/24 02:00 Urine Ketones Negative (Negative) 08/19/24 02:00 Urine Blood Negative (Negative) 08/19/24 02:00 Urine Nitrate Negative (Negative) 08/19/24 02:00 Urine Bilirubin Negative (Negative) 08/19/24 02:00 Urine Urobilinogen 1.0 mg/dL (Negative) 08/19/24 02:00 Ur Leukocyte Esterase Negative (Negative) 08/19/24 02:00 Urine RBC 0-2 /hpf (0-2) 08/19/24 02:00 Urine WBC 0-5 /hpf (0-5) 08/19/24 02:00 Ur Squamous Epith Cells 0-5 /hpf (0-5) 08/19/24 02:00 Amorphous Sediment Not Reportable 08/19/24 02:00 Urine Bacteria None seen /hpf (NONE) 08/19/24 02:00 Hyaline Casts 0.40 /lpf 08/19/24 02:00 No radiology studies performed this visit Discharge Plan Discharge Patient Disposition: Home Clinical Impression: Gastroesophageal reflux disease Qualifiers: Esophagitis presence: without esophagitis Qualified Code(s): K21.9 - Gastro- esophageal reflux disease without esophagitis Condition: Stable Prescriptions: New omeprazole 40 mg capsule,delayed release(DR/EC) 40 mg PO DAILY 56 Days Qty: 60 0RF No Action albuterol sulfate 90 mcg/actuation HFA aerosol inhaler 2 puff inhalation Q6H PRN (Reason: shortness of breath or wheezing) Qty: 8.5 0RF (DME) knee brace right See Rx Instructions .Route .MEDSUPPLY Qty: 1 0RF Rx Instructions: As directed B-complex with vitamin C Tablet 1 tab PO DAILY ashwagandha root extract 300 mg capsule PO berberine chloride 500 mg capsule PO Alive Calcium-Vitamin D3-K2 300 mg-25 mcg- 66 mg-37.5 mcg tablet PO prednisone 20 mg tablet 20 mg PO DAILY 7 Days Qty: 15 0RF Rx Instructions: 60mg daily for 3 days 40mg daily for 2 days 20mg daily for 2 days acetaminophen [Tylenol] 325 mg capsule 975 mg PO DAILY PRN (Reason: fever or pain) (DME) RIGHT ANKLE BRACE See Rx Instructions .Route .MEDSUPPLY Qty: 1 0RF Rx Instructions: As directed diclofenac sodium [Voltaren Arthritis Pain] 1 % gel 4 g topical QID Qty: 100 2RF Rx Instructions: apply to single knee, ankle, foot; for foot includes sole/toes/top of foot triamcinolone acetonide 0.1 % cream 1 applic topical BID Qty: 30 3RF ibuprofen 800 mg tablet 800 mg PO Q8H PRN (Reason: pain) Qty: 90 1RF Discharge Orders: Discharge ED (Routine); Ordered 08/19/24 Ordered By: Ilan Levin Discharge Diet: Advance as tolerated Discharge Activity: Resume usual activity Patient Instructions: Opioid Safety, Pain Management Activity Restrictions/Additional Instructions: Please follow-up with your primary care physician for any persistent symptoms. Return to the emergency department with any new or worsening symptoms Print Language: Spanish Coding Level of Care Code ED Ethanol Operations Manager for Michelle Rivas
--- NOTE | 2024-08-19 04:25 | W.ED.ABDPA2 ---
HPI - Abdominal Pain General: Chief Complaint: Abdominal Pain Stated Complaint: epigastric abd pain/ n/v/d Time Seen by Provider: 08/19/24 02:14 Related Data Home Medications ?Medication ?Instructions ?Recorded ?Confirmed acetaminophen 325 mg capsule 975 mg PO DAILY PRN fever or pain 11/07/21 07/29/24 (Tylenol) B-complex with vitamin C 1 tab PO DAILY 04/29/24 07/29/24 ashwakimdha root extract 300 mg mg PO 04/29/24 07/29/24 capsule berberine chloride 500 mg capsule mg PO 04/29/24 07/29/24 calcium 300 mg-D3 25 mcg-magnesium tab PO 04/29/24 07/29/24 66 mg-K2 37.5 mcg-herbal tablet (Alive Calcium-Vitamin D3-K2) Previous Rx's ?Medication ?Instructions ?Recorded albuterol sulfate 90 mcg/actuation 2 puff inhalation Q6H PRN 12/03/22 aerosol inhaler shortness of breath or wheezing #8.5 grams knee brace right #1 ea 12/19/22 RIGHT ANKLE BRACE #1 ea 06/05/23 ibuprofen 800 mg tablet 800 mg PO Q8H PRN pain #90 tabs 06/06/23 diclofenac sodium 1 % topical gel 4 g topical QID #100 grams 08/12/23 (Voltaren Arthritis Pain) triamcinolone acetonide 0.1 % 1 applic topical BID #30 grams 10/08/23 topical cream prednisone 20 mg tablet 20 mg PO DAILY 7 days #15 tabs 04/29/24 omeprazole 40 mg capsule,delayed 40 mg PO DAILY 8 weeks #60 caps 08/19/24 release Allergies Allergy/AdvReac Type Severity Reaction Status Date / Time No Known Allergies Allergy Verified 08/19/24 00:32 [facility] ED PFSH: Medical History COPD (chronic obstructive pulmonary disease) Cervical vertebral fusion syndrome Anxiety Depression Rheumatoid arthritis Compression fracture Ectopic Nicotine use disorder Surgical History History of cholecystectomy H/O spinal fusion Family History Father No problems noted. Mother Paranoia Hallucination Diabetes Cancer Stroke Social History Smoking and tobacco/nicotine status: current every day tobacco/nicotine user cigarettes Packs smoked per day: 0.5 Years cigarettes smoked: 24 Quit status (tobacco/nicotine): has tried quititng Number of times tried to quit tobacco: 2 Second hand smoke exposure: Yes Alcohol intake: former Substance/Drug Use: current Other substance/drug use details: CDB products. Course Vital Signs: Vital signs: Vital Signs Temperature 98.1 F 08/19/24 00:26 Pulse Rate 101 H 08/19/24 00:26 Respiratory Rate 18 08/19/24 00:26 Blood Pressure 131/79 08/19/24 00:26 Pulse Oximetry 95 08/19/24 00:26 MDM - Abdominal Pain Lab Data 08/19/24 02:01 08/19/24 02:01 Labs/Radiology: Laboratory Results WBC 8.81 10^3/uL (3.29-11.43) 08/19/24 02:01 RBC 5.28 10^6/uL (3.85-5.65) 08/19/24 02:01 Hgb 16.40 g/dL (11.27-16.99) 08/19/24 02:01 Hct 49.0 % (36-47) H 08/19/24 02:01 MCV 92.8 fl (85-98) 08/19/24 02:01 MCH 31.1 pg (27-33) 08/19/24 02:01 MCHC 33.5 g/dL (30-55) 08/19/24 02:01 RDW 13.2 % (12.1-15.1) 08/19/24 02:01 Plt Count 223 10^3/cmm (157-399) 08/19/24 02:01 MPV 12.0 fL (7.4-10.4) H 08/19/24 02:01 Neut % (Auto) 58.9 % 08/19/24 02:01 Lymph % (Auto) 28.7 % 08/19/24 02:01 [place] % (Auto) 6.4 % 08/19/24 02:01 Eos % (Auto) 5.1 % 08/19/24 02:01 Baso % (Auto) 0.7 % 08/19/24 02:01 Neut # (Auto) 5.19 10^3/uL (1.8-7.7) 08/19/24 02:01 Lymph # (Auto) 2.5 10^3/uL (0.8-4.8) 08/19/24 02:01 [place] # (Auto) 0.6 10^3/uL (0.2-0.9) 08/19/24 02:01 Eos # (Auto) 0.5 10^3/uL (0.0-0.8) 08/19/24 02:01 Baso # (Auto) 0.1 10^3/uL (0.0-0.1) 08/19/24 02:01 Nucleated RBC % (auto) 0 % 08/19/24 02:01 Nucleated RBCs # 0.0 /100WBC 08/19/24 02:01 Sodium 138 mmol/L (136-145) 08/19/24 02:01 Potassium 4.0 mmol/L (3.5-5.1) 08/19/24 02:01 Chloride 99 mmol/L (98-107) 08/19/24 02:01 Carbon Dioxide 29 mmol/L (22-29) 08/19/24 02:01 Anion Gap 14.0 (5-19) 08/19/24 02:01 BUN 14 mg/dL (6-20) 08/19/24 02:01 Creatinine 0.6 mg/dL (0.5-0.9) 08/19/24 02:01 GFR Calculation 105.8 mL/min (90-130) 08/19/24 02:01 Glucose 96 mg/dL (65-115) 08/19/24 02:01 Calculated Osmolality 286 mOsm/kg (285-295) 08/19/24 02:01 Lactic Acid 1.2 mmol/L (0.5-2.2) 08/19/24 02:01 Calcium 9.0 mg/dL (8.5-10.5) 08/19/24 02:01 Magnesium 1.9 mg/dL (1.7-2.3) 08/19/24 02:01 Total Bilirubin 0.3 mg/dL (0.15-1.2) 08/19/24 02:01 AST 14 U/L (0-32) 08/19/24 02:01 ALT 16 U/L (0-33) 08/19/24 02:01 Alkaline Phosphatase 80 U/L (35-105) 08/19/24 02:01 Total Protein 7.5 g/dL (6.6-8.7) 08/19/24 02:01 Albumin 4.0 g/dL (3.5-5.2) 08/19/24 02:01 Globulin 3.5 g/dL (1.3-4.6) 08/19/24 02:01 Lipase 18 U/L (13-60) 08/19/24 02:01 Urine Color Yellow (Yellow) 08/19/24 02:00 Urine Appearance Clear (CLEAR) 08/19/24 02:00 Urine pH 7.0 (5-7) 08/19/24 02:00 Ur Specific [place] 1.022 (1.005-1.030) 08/19/24 02:00 Urine Protein Negative (Negative) 08/19/24 02:00 Urine Glucose (UA) Negative (Normal) 08/19/24 02:00 Urine Ketones Negative (Negative) 08/19/24 02:00 Urine Blood Negative (Negative) 08/19/24 02:00 Urine Nitrate Negative (Negative) 08/19/24 02:00 Urine Bilirubin Negative (Negative) 08/19/24 02:00 Urine Urobilinogen 1.0 mg/dL (Negative) 08/19/24 02:00 Ur Leukocyte Esterase Negative (Negative) 08/19/24 02:00 Urine RBC 0-2 /hpf (0-2) 08/19/24 02:00 Urine WBC 0-5 /hpf (0-5) 08/19/24 02:00 Ur Squamous Epith Cells 0-5 /hpf (0-5) 08/19/24 02:00 Amorphous Sediment Not Reportable 08/19/24 02:00 Urine Bacteria None seen /hpf (NONE) 08/19/24 02:00 Hyaline Casts 0.40 /lpf 08/19/24 02:00 Discharge Plan Discharge Patient Disposition: Home Clinical Impression: Gastroesophageal reflux disease Qualifiers: Esophagitis presence: without esophagitis Qualified Code(s): K21.9 - Gastro-esophageal reflux disease without esophagitis Condition: Stable Prescriptions: New omeprazole 40 mg capsule,delayed release(DR/EC) 40 mg PO DAILY 56 Days Qty: 60 0RF No Action albuterol sulfate 90 mcg/actuation HFA aerosol inhaler 2 puff inhalation Q6H PRN (Reason: shortness of breath or wheezing) Qty: 8.5 0RF (DME) knee brace right See Rx Instructions .Route .MEDSUPPLY Qty: 1 0RF Rx Instructions: As directed B-complex with vitamin C Tablet 1 tab PO DAILY ashwagandha root extract 300 mg capsule PO berberine chloride 500 mg capsule PO Alive Calcium-Vitamin D3-K2 300 mg-25 mcg- 66 mg-37.5 mcg tablet PO prednisone 20 mg tablet 20 mg PO DAILY 7 Days Qty: 15 0RF Rx Instructions: 60mg daily for 3 days 40mg daily for 2 days 20mg daily for 2 days acetaminophen [Tylenol] 325 mg capsule 975 mg PO DAILY PRN (Reason: fever or pain) (DME) RIGHT ANKLE BRACE See Rx Instructions .Route .MEDSUPPLY Qty: 1 0RF Rx Instructions: As directed diclofenac sodium [Voltaren Arthritis Pain] 1 % gel 4 g topical QID Qty: 100 2RF Rx Instructions: apply to single knee, ankle, foot; for foot includes sole/toes/top of foot triamcinolone acetonide 0.1 % cream 1 applic topical BID Qty: 30 3RF ibuprofen 800 mg tablet 800 mg PO Q8H PRN (Reason: pain) Qty: 90 1RF Discharge Orders: Discharge ED (Routine); Ordered 08/19/24 Ordered By: Ilan [employer] Discharge Diet: Advance as tolerated Discharge Activity: Resume usual activity Patient Instructions: Opioid Safety, Pain Management Activity Restrictions/Additional Instructions: Please follow-up with your primary care physician for any persistent symptoms. Return to the emergency department with any new or worsening symptoms Print Language: Turkish Coding Level of Care Code ED Hair Specialist for Michelle Rivas
[2024-08-19] MEDS: pantoprazole DR 40 mg Tablet PO (04:52)
[2024-08-19 04:56] VITALS: BP 125/86; PULSE 83; O2SAT 97
== END 2024-08-19 04:57 | disposition home or self-care (01) ==
PROVIDERS: Emergency Provider General Practice
DX: K21.9 Gastro-esophageal reflux disease without esophagitis (principal); F17.210 Nicotine dependence, cigarettes, uncomplicated
CPT/HCPCS: 80053; 81001; 83605; 83690; 83735; 85025; 96360; 96361; 99284; J7030; J9999

== ENCOUNTER → 2024-10-04 10:22 | Outpatient (BNVA) | payer MEDICAID, SELFPAY | PROVIDERS: PCP Family Medicine; Visit Provider Family Medicine | DX: Z12.4 Encounter for screening for malignant neoplasm of cervix (principal) | CPT/HCPCS: 87624 ==

== ENCOUNTER 2024-10-07 13:13 | Outpatient (CLI) | payer MEDICAID, SELFPAY ==
--- NOTE | 2024-10-07 13:20 | MM_ITS ---
WS: [id number] BILATERAL 3D TOMOSYNTHESIS DIGITAL SCREENING MAMMOGRAM WITH CAD CLINICAL INFORMATION: screening HISTORY: Screening mammogram. No current complaints. COMPARISON: Baseline TECHNIQUE: Bilateral CC and MLO views. FINDINGS: Fatty-replaced breasts bilaterally. No suspicious focal mass, asymmetry, calcifications, or architectural distortion. No evidence of malignancy. MM/MM scr BI tomosynthesis [id number] IMPRESSION: DENSITY: The breasts are almost entirely fatty. BI-RADS: 1 - Negative. FOLLOW UP: 1 Year Follow-up Recommend return to annual screening mammography.
== END 2024-10-07 13:14 | disposition home or self-care (01) ==
LOC: RAD 13:13
PROVIDERS: PCP Family Medicine; Visit Provider Family Medicine
DX: Z12.31 Encounter for screening mammogram for malignant neoplasm of breast (principal); Z12.39 Encounter for other screening for malignant neoplasm of breast; R92.313 Mammographic fatty tissue density, bilateral breasts
CPT/HCPCS: 77063; 77067

== ENCOUNTER → 2024-10-20 09:34 | Outpatient (BNVA) | payer MEDICAID, SELFPAY | PROVIDERS: Referring Provider Family Medicine; Visit Provider Internal Medicine | DX: E88.819 Insulin resistance, unspecified (principal); E66.9 Obesity, unspecified; N95.1 Menopausal and female climacteric states | CPT/HCPCS: 36415; 82670; 83001; 83036; 83525; 84439; 84443 ==

== ENCOUNTER 2024-10-28 11:56 | Outpatient (CLI) | payer MEDICAID, SELFPAY ==
[2024-10-28 13:11] LABS: Creatinine 24 Hour Urine 1568.0 mg/dL (601-1689); Total Volume Urine 1600 ml
== END 2024-10-28 11:57 | disposition home or self-care (01) ==
LOC: LAB 11:58
PROVIDERS: PCP Family Medicine; Visit Provider Internal Medicine
DX: E88.819 Insulin resistance, unspecified (principal); E66.9 Obesity, unspecified
CPT/HCPCS: 82530; 82570

== ENCOUNTER → 2024-11-24 14:49 | Outpatient (BNVA) | payer MEDICAID, SELFPAY | PROVIDERS: PCP Family Medicine; Visit Provider Family Medicine | DX: D22.9 Melanocytic nevi, unspecified (principal) | CPT/HCPCS: 88304 ==